=== PATIENT | male | born 1980 | race Caucasian/White ===

== ENCOUNTER → 2020-11-27 | Outpatient (CLI) | payer BC ==
--- NOTE | 2020-11-27 11:49 | EXE ---
[facility] [place] [address] STRESS ECHOCARDIOGRAM Name: MAGGIE BERNABE Room #: REG [facility]#: [id number] Admission: 11/27/20 Attend Phys: Tony Lima MD Discharge: Date of : 76 Report #: [id number] THIS REPORT FOR: cc: RICHARD BASURTO Physician not on staff Tony Lima MD ~ APPROVED REPORT Study performed: 11/27/2020 09:23:50 Exam: Stress Echocardiogram Indication: Chest pain Patient Location: Out-Patient Stress Nurse: Alina Gudino RN Ht: 6 ft 3 in HR: 65 bpm BP: 132/84 mmHg Rhythm: NSR Medical History Allergies: No known drug allergies Procedure The patient underwent an Exercise Stress Test using the Gilbert Protocol. Blood pressure, heart rate, and EKG were monitored. An Echocardiogram was performed by restoration technician in four stages in quad fashion. At peak stress, four selected images were obtained and placed side by side with resting images for comparison. Stress Test Details Stress Test: Exercise stress testing was performed using a Gilbert protocol. HR Resting HR: 68 bpm Max Heart Rate (APMHR): 178 bpm Max HR Achieved: 166 bpm Target HR (85% APMHR): 151 bpm % of APMHR: 93 Recovery HR: 96 bpm HR response to stress: Normal HR response to stress BP Resting BP: 132/84 mmHg Max BP: 200/110 mmHg Recovery BP: 164/110 mmHg BP response to stress: Normal blood pressure response to [facility] [address] [place] [address] STRESS ECHOCARDIOGRAM Name: MAGGIE BERNABE Room #: REG [facility]#: [id number] Admission: 11/27/20 Attend Phys: Tony Lima MD Discharge: Date of : 76 Report #: [id number] stress. ECG Resting ECG: Sinus Rhythm Stress ECG: Sinus Tachycardia ST Change: Non-ischemic Arrhythmia: VPC's, couplets Clinical Reason for Termination: Fatigue. Stress Symptoms: Chest pain during exercise. Exercise duration: 10 min 21 sec Highest Stage Achieved: Stage 4: 4.2 mph at 16% grade. Exercise capacity: 13.70 METs Pre-Stress Echo The resting Echocardiogram showed normal left ventricular contractility with an estimated Ejection Fraction of about 60-65%. The resting echocardiogram demonstrated normal wall motion in all wall segments. Post-Stress Echo The stress Echocardiogram showed abnormal left ventricular contractility with an estimated Ejection Fraction of about 55-60%. The stress Echocardiogram demonstrated wall motion abnormality in the mid to apical anteroseptal jaime. Conclusion Clinical Response: Ischemic Exercise Capacity: Average Stress ECG Response: Non-ischemic Stress Echo Images: Ischemic Other Information Study Quality: Good <ELECTRONICALLY SIGNED> By: Tony Lima MD 11/27/20 1148 1148 1148 Tony Lima MD /CHERELLE
== END ==
LOC: CV 10:02
PROVIDERS: ATTEND Internal Medicine Cardiovascular Disease
DX: I25.89 Other forms of chronic ischemic heart disease (principal); R07.9 Chest pain, unspecified

== ENCOUNTER 2020-12-05 08:00 | Observation (INO) | payer BC ==
[2020-12-05] VITALS (13 sets, daily range): BP systolic 118–151; BP diastolic 58–97
[~2020-12-05] VITALS: Ht 190.5 cm; Wt 115.7 kg
[2020-12-05 08:46] LABS: HEMATOCRIT 47.2 % (42.0-52.0); MCH 30.4 pg (26.0-34.0); MCHC 33.8 g/dL (28.0-37.0); MCV 90.1 fL (80.0-100.0); RBC 5.24 mil/uL (4.50-6.00); RDW 13.4 % (10.5-14.5); WBC 4.5 thou/uL (4.0-11.0)
[2020-12-05] MEDS ORDERED: TOPROL XL25 MG PO (08:50)
[2020-12-05] MEDS ORDERED: ASA81BEC PO (08:50)
[2020-12-05] MEDS ORDERED: CRESTOR20 MG PO (08:50)
[2020-12-05] MEDS ORDERED: PROAIR HFA8.5 GM INH (08:52)
[2020-12-05] MEDS ORDERED: XANAX1 MG PO (08:52)
[2020-12-05 08:56] LABS: CALCIUM 9.3 mg/dL (8.5-10.1); CREATININE 1.2 mg/dL (0.7-1.3)
--- NOTE | 2020-12-05 12:50 | NUR ---
PT ORIENTED TO ROOM AND UNIT, BED LOW ND LOCKED, SIDE RAILS UPX3, CALL LIGHT IN REACH, TELE APPLIED. RIGHT GROIN CDI WITH NO HEMATOMA. WILL CONTINUE TO ASSESS.
--- NOTE | 2020-12-05 15:01 | CATHLAB ---
[facility] [place] [address] INVASIVE PROCEDURE REPORT Name: MAGGIE BERNABE Room #: 212-P [facility] M.R.#: [id number] Admission: 12/05/20 Attend Phys: Tony Lima MD Discharge: Date of : 76 Report #: [id number] THIS REPORT FOR: cc: RICHARD BASURTO FAMILY PHYSICIAN or PCP Tony Lima MD ~ APPROVED REPORT Study performed: 12/05/2020 09:17:54 Patient Details Patient Status: Out-Patient Room #: The patient is a 40 year-old male Event Personnel Tony Lima Cloth Bleaching Range Tender, Carol Guzman RN RN, Velvet Gaffney RTR, DEREK Scrub, Aditi Cohen RTR Scrub, Marilyn Jones Monitor Procedures Performed Art Access - R femoral artery* Left Heart Cath w/or w/o Coronaries [id number] [facility] w/wo Plasty Single LAD [id number] Initial Mod Sed Same Phys/QHP Gr5y [id number] 71846 Mod Sed Same Phys/QHP Ea 622655 Hemostasis w/ Mynx Indication Dyspnea, Positive stress test, Chest pain Risk Factors Family History, Hypercholesterolemia Procedure Narrative The Right Groin 10ML^ was infiltrated with subcutaneous anesthesia. A PINNACLE 6FR Sheath #[id number] sheath was inserted into the RFA^. Coronary angiography was performed using coronary diagnostic catheters. The right coronary system was accessed and visualized with a JR4 catheter. The left coronary system was accessed and visualized with a JL4 catheter. The left ventricle was accessed and visualized with a ANGLE PIG catheter. Left ventriculogram was performed in 30 degree projection. There was no hematoma. Intraoperative Conscious Sedation Sedation start time: 958 Case end Time: 121 [facility] [address] [place] [address] INVASIVE PROCEDURE REPORT Name: MAGGIE BERNABE Room #: 212-P [facility].#: [id number] Admission: 12/05/20 Attend Phys: Tony Lima MD Discharge: Date of : 76 Report #: [id number] Fentanyl 200 mcg Versed 4 mg Fluoro Time: 35.90 minutes Dose: DAP 66467.00 cGycm2 876 mGy Contrast Type and Amount: Omnipaque 485 ml Coronary Angiography The patient's coronary anatomy is right dominant. Diagnostic Cath Left Main The left main artery is a short segment, patent with no flow-limiting lesions. LAD The LAD is a moderate-sized caliber vessel with a total occlusion in the proximal/mid segment. After the obstruction, the mid and distal LAD is filled via collateral circulation. Diagonal 1 This is a moderate-sized caliber vessel, patent with no flow-limiting lesions. Diagonal 2 This is a moderate-sized caliber vessel, with mild disease in the proximal segment. This vessel supplies several branches as a travels down the anterolateral wall. Circumflex Supplies 1 OM vessel. OM1 This is a small to moderate-sized caliber vessel, patent with no flow-limiting lesions. Right Coronary The RCA is a moderate to large caliber vessel, dominant. There is a mild stenosis in the midsegment, 30%. R PDA This is a moderate-sized caliber vessel, patent with no flow-limiting lesions. RPLV This is a moderate-sized caliber vessel, patent with no flow-limiting lesions. Left Ventriculography The left ventricle is normal in size with normal contractility. The left ventricular ejection fraction is estimated to be >55%. Left ventricular wall motion abnormalities are present. There is focal hypokinesis of the distal inferoapical wall. Hemodynamics The aortic pressure is 123/77 mmHg with a mean of 97 mmHg. The left ventricular end diastolic pressure is 28 mmHg. PCI Technique Lesion Percutaneous coronary intervention was performed on the Proximal/mid left anterior descending artery segment. The lesion stenosis prior to intervention was 100% with ARCELIA 2 flow. A AdverseEventsTA 6FR XB 3.5 #[id number] Guide Catheter was used to engage the ostium. A Luge Wire .014 x 182CM #[id number] Interventional Guidewire was used to cross the [facility] [address] [place] [address] INVASIVE PROCEDURE REPORT Name: MAGGIE BERNABE Room #: 212-P [facility] M.R.#: [id number] Admission: 12/05/20 Attend Phys: Tony Lima MD Discharge: Date of : 76 Report #: [id number] lesion. BALLOON DILATION A Balloon catheter Sprinter OTW 2.0 x 10 #[id number] was inserted and inflated up to 8.00atm for 13seconds. Additional Inflation: 10.00atm for 16seconds. Additional Inflation: 8.00atm for 12seconds. 2ND BALLOON USED WAS A EUPHORA 2.5X15: 8ATM FOR 13 SEC/MIN., 8 RANDA FOR 14 RANDA SEC/MIN, 8 RANDA FOR 12 SEC/MIN., 8 RANDA FOR 8 SEC/MIN. STENT DEPLOYMENT A stent RESOLUTE ODELL RX 2.75 X 30 #[id number] was inserted and inflated up to 10.00atm for 27seconds. POST STENT DEPLOYMENT BALLOON DILATION A Balloon catheter Euphora RX 2.75 x 15 #[id number] was inserted and inflated up to 18.00atm for 19seconds. Additional Inflation: 18.00atm for 14seconds. Additional Inflation: 18.00atm for 18seconds. 2ND NC BALLOON NC EUPHORA 3.15MM: 18 RANDA FOR 88 SEC/MIN, 18 RANDA FOR 11 SEC/MIN. Final angiography reveals 0 % stenosis with ARCELIA 3 flow. COMMENTS There was 100% stenosis in the proximal/mid LAD representing a SOLDER LEVELER PRINTED CIRCUIT BOARDS. Initial attempts at crossing the obstruction with a luge wire was unsuccessful. Using the antegrade approach, I was able to cross the stenosis with a luge wire- loaded onto an over the wire balloon system. I was then able to pass the balloon across the stenosis into the mid LAD segment. The wire was removed and contrast was injected to confirm placement of the wire. Balloon angioplasty was performed before placement of a drug-eluting stent as described above. Conclusion 1. Successful PCI of a SOLDER LEVELER PRINTED CIRCUIT BOARDS involving the proximal/mid LAD segment using the antegrade approach, with placement of a drug-eluting stent. 2. There is mild disease in the second diagonal artery and RCA. 3. There is normal LV systolic function, with focal hypokinesis of the distal inferoapical wall. [facility] [address] [place] [address] INVASIVE PROCEDURE REPORT Name: MAGGIE BERNABE Room #: 212-P [facility] .R.#: [id number] Admission: 12/05/20 Attend Phys: Tony Lima MD Discharge: Date of : 76 Report #: [id number] 4. Recommend dual antiplatelet therapy and aggressive risk factor management. <ELECTRONICALLY SIGNED> By: Tony Lima MD 12/05/20 1501 150 150 Tony Lima MD /INF
--- NOTE | 2020-12-05 19:34 | NUR ---
RIGHT GROIN REMAINS CDI WITH NO HEMATOMA. PT DENIES PAIN OR SOA. RIGHT GROING ASSESSED WITH NIGHT RN SEAMUS DONALD. PT VOIDED PER BATHROOM AND TAKING IN GOOD PO.
[2020-12-06 03:55] VITALS: BP 120/72
[2020-12-06 05:28] LABS: HEMATOCRIT 42.9 % (42.0-52.0); HEMOGLOBIN 14.9 gm/dL (14.0-18.0); MCH 31.3 pg (26.0-34.0); MCHC 34.8 g/dL (28.0-37.0); RBC 4.76 mil/uL (4.50-6.00); RDW 13.5 % (10.5-14.5); WBC 5.8 thou/uL (4.0-11.0)
[2020-12-06 05:39] LABS: ALBUMIN 3.5 g/dL (3.4-5.0); CALCIUM 8.8 mg/dL (8.5-10.1); CREATININE 1.2 mg/dL (0.7-1.3); POTASSIUM 4.2 mmol/L (3.5-5.1); TOTAL PROTEIN 7.1 g/dL (6.4-8.2)
[2020-12-06 07:16] VITALS: BP 130/68
[2020-12-06] MEDS ORDERED: EFFIENT10 MG PO ×2 (07:33→07:47)
--- NOTE | 2020-12-06 08:24 | EKG ---
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
[2020-12-06 11:03] VITALS: BP 130/68
--- NOTE | 2020-12-08 12:18 | EKG ---
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: FSCHWALBE : 1980 Requested By: Tony Lima Order Number: [id number] MD: Eros Obrien Measurements Intervals [place] Rate: 71 P: 40 DC: 168 QRS: -11 QRSD: 87 T: 31 QT: 372 QTc: 405 Interpretive Statements Sinus rhythm Nonspecific T wave abnormality Compared to ECG 12/05/2020 14:00:33 Sinus bradycardia no longer present Electronically Signed On 12-08-2020 12:18:22 CDT by Eros Obrien [email or web address] <ELECTRONICALLY SIGNED> By: Eros Obrien MD, [facility] 12/08/20 1218 1328 Eros Obrien MD, [facility] /EPI
== END 2020-12-06 15:55 | disposition home or self-care (01) ==
LOC: CATH 08:00 → 2N 13:31 → CATH 14:00 → 2N 14:00 → CATH 14:01 → 2N 12-06 15:55
PROVIDERS: ADMIT Internal Medicine Cardiovascular Disease; ATTEND Internal Medicine Cardiovascular Disease
DX: I25.110 Atherosclerotic heart disease of native coronary artery with unstable angina pectoris (principal); Z88.0 Allergy status to penicillin; Z88.2 Allergy status to sulfonamides; Z88.5 Allergy status to narcotic agent; Z79.82 Long term (current) use of aspirin; Z79.899 Other long term (current) drug therapy

== ENCOUNTER → 2020-12-11 | Outpatient (CLI) | payer BC ==
[~2020-12-11] MED LIST: ASA81BEC PO; CRESTOR20 MG PO; EFFIENT10 MG PO; PROAIR HFA8.5 GM INH; TOPROL XL25 MG PO; XANAX1 MG PO
== END ==
LOC: SJCVCIMAG 10:04
PROVIDERS: ATTEND Internal Medicine Cardiovascular Disease
DX: R10.30 Lower abdominal pain, unspecified (principal); S30.1XXA Contusion of abdominal wall, initial encounter; X58.XXXA Exposure to other specified factors, initial encounter; Y93.89 Activity, other specified; Y92.89 Other specified places as the place of occurrence of the external cause; Y99.8 Other external cause status